=== PATIENT | male | born 1945 | race Caucasian/White ===

== ENCOUNTER 2025-03-29 06:14 | Day surgery (SDC) | payer OTHER ==
[~2025-03-29] VITALS: Ht 180.3 cm; Wt 101.4 kg
[~2025-03-29 06:14] MED LIST: ATOR20 PO; Balanced Salt Epinephrine Irrigation Solution 500 mL IR SCH; CHLO25B PO; Cipro500 MG PO; DHEA PO; GABA300 PO; GLUC500 PO; HYDPAM25 PO; MELO7.5 PO; MULTI VITAMIN1 EACH PO; Moxifloxacin HCL 0.5 MG/0.1 ML 0.4MLSYR RIGHTEYE SCH; Norco 5-325 Ta1 EACH PO; Ondansetron 4 MG SoluTab MM PRN; PHENYLEPHRINE\\TROPICAMIDE\\TETRACAINE OPHTHALMIC DILATING SOLN RIGHTEYE PRN; Povidone-Iodine 450 DROP/30 ML Solution ONE; Povidone-Iodine 450 DROP/30 ML Solution RIGHTEYE SCH; ROSU10TA PO; SULTRIDS PO; Tetracaine HCl/Pf 0.5% Opth Soln 4 ml ONE; VENL25 PO; VENL75ER
--- NOTE | 2025-03-29 06:42 | NUR ---
03/29/25 0642 Ernie Rajan CALL LIGHT WITHIN REACH. EYE DROPS TO RIGHT EYE AROUND 0633. PT ON CONTINOUS PULSE OXIMETER FOR MONITORING.
--- NOTE | 2025-03-29 07:34 | NUR ---
03/29/25 0734 Gypsy Rodriguez 0731: HR: 45 BP: 124/73 SPO2: 98% ON BLOW BY O2 RR: 12
[2025-03-29 07:56] VITALS: BP 124/74
--- NOTE | 2025-03-29 08:06 | NUR ---
03/29/25 0806 Carmichaels,Jcarlos ESPINOSA AWARE OF PT'S HEART RATE WHICH IS IN THE MID 40'S. DR ESPINOSA REPORTS OK TO D/C HOME.
== END 2025-03-29 08:19 | disposition home or self-care (01) ==
LOC: ORSCSDS 06:14
PROVIDERS: Student in an Organized Health Care Education/Training Program
PROC: 08RJ3JZ Replacement of Right Lens with Synthetic Substitute, Percutaneous Approach (ICD-10-PCS; principal; 2025-03-29 07:30)
DX: E11.36 Type 2 diabetes mellitus with diabetic cataract (principal); H25.813 Combined forms of age-related cataract, bilateral; H52.201 Unspecified astigmatism, right eye; J44.9 Chronic obstructive pulmonary disease, unspecified; E11.40 Type 2 diabetes mellitus with diabetic neuropathy, unspecified; I10 Essential (primary) hypertension; H35.3122 Nonexudative age-related macular degeneration, left eye, intermediate dry stage; H35.3113 Nonexudative age-related macular degeneration, right eye, advanced atrophic without subfoveal involvement; Z79.82 Long term (current) use of aspirin; Z79.84 Long term (current) use of oral hypoglycemic drugs; Z79.899 Other long term (current) drug therapy; Z87.891 Personal history of nicotine dependence
CPT/HCPCS: A9270; J2003; V2632

== ENCOUNTER 2025-04-05 08:26 | Day surgery (SDC) | payer OTHER ==
[~2025-04-05] VITALS: Ht 180.3 cm; Wt 101.7 kg
[~2025-04-05 08:26] MED LIST changes: +Moxifloxacin HCL 0.5 MG/0.1 ML 0.4MLSYR LEFTEYE SCH; -Moxifloxacin HCL 0.5 MG/0.1 ML 0.4MLSYR RIGHTEYE SCH; +PHENYLEPHRINE\\TROPICAMIDE\\TETRACAINE OPHTHALMIC DILATING SOLN LEFTEYE PRN; -PHENYLEPHRINE\\TROPICAMIDE\\TETRACAINE OPHTHALMIC DILATING SOLN RIGHTEYE PRN; +Povidone-Iodine 450 DROP/30 ML Solution LEFTEYE SCH; -Povidone-Iodine 450 DROP/30 ML Solution RIGHTEYE SCH
--- NOTE | 2025-04-05 08:51 | NUR ---
04/05/25 0851 Ernie Rajan CALL LIGHT WITHIN REACH. EYE DROPS AROUND 0848. PT ON CONTINOUS PULSE OXIMETER FOR CONTINUAL MONITORING.
--- NOTE | 2025-04-05 09:32 | NUR ---
04/05/25 0932 Kathryn Cordero 0927 BP: 115/66 HR:46 O2%:96 RESP: 16
[2025-04-05 09:48] VITALS: BP 116/55
--- NOTE | 2025-04-05 09:52 | NUR ---
04/05/25 0952 Rachel Ryan LEFT HEARING AID RETURNED TO PATIENT AND PATIENT PLACED IN LEFT EAR. RIGHT HEARING AID IN PLACE UPON ARRIVAL FROM OR
== END 2025-04-05 10:06 | disposition home or self-care (01) ==
LOC: ORSCSDS 08:26
PROVIDERS: Student in an Organized Health Care Education/Training Program
PROC: 08RK3JZ Replacement of Left Lens with Synthetic Substitute, Percutaneous Approach (ICD-10-PCS; principal; 2025-04-05 10:00)
DX: E11.36 Type 2 diabetes mellitus with diabetic cataract (principal); H25.812 Combined forms of age-related cataract, left eye; H52.202 Unspecified astigmatism, left eye; Z96.1 Presence of intraocular lens; H33.322 Round hole, left eye; J44.9 Chronic obstructive pulmonary disease, unspecified; H35.89 Other specified retinal disorders; D31.32 Benign neoplasm of left choroid; I10 Essential (primary) hypertension; Z87.891 Personal history of nicotine dependence; H35.3122 Nonexudative age-related macular degeneration, left eye, intermediate dry stage; H35.3113 Nonexudative age-related macular degeneration, right eye, advanced atrophic without subfoveal involvement; H40.009 Preglaucoma, unspecified, unspecified eye; Z79.84 Long term (current) use of oral hypoglycemic drugs; Z79.899 Other long term (current) drug therapy
CPT/HCPCS: A9270; V2632